=== PATIENT | male | born 1985 | race Caucasian/White ===

== ENCOUNTER 2020-10-27 22:40 | Emergency (ER) | payer BC ==
[2020-10-27 23:04] VITALS: BP 170/99; PULSE 93; RESP 18; TEMP 97.9
[2020-10-27] MEDS ORDERED: BACITRACIN OINT 1 EACH PACKET TOPICAL ONE (23:16)
--- NOTE | 2020-10-28 00:04 | XR ---
EXAMINATION TYPE: XR toes LT DATE OF EXAM: 10/27/2020 COMPARISON: NONE HISTORY: Laceration TECHNIQUE: 4 views FINDINGS: I see no fracture nor dislocation. There is no sign of a foreign body. There is 5 mm bony d ensity posterior to the IP joint of the big toe that could relate to old injury. This is unusual appe arance for accessory ossicle. IMPRESSION: No fracture seen.
[2020-10-28] MEDS ORDERED: CEPHALEXIN 500MG STARTER PACK 4 CAP BTL PO STA (00:28)
--- NOTE | 2020-10-28 00:30 | ED ---
Wound/Laceration HPI - General Chief Complaint: Wound/Laceration Stated Complaint: LT foot lac Time Seen by Provider: 10/27/20 23:07 Source: patient Mode of arrival: ambulatory - History of Present Illness Initial Comments: 34 year-old male patient presents to the emergency department for evaluation of wound to the left great toe. Patient states that injury occurred a couple of hours prior to arrival. States he was running through a field. Stubbed his toe. States afterward he felt some pain, reached down to feel his toe and had blood on his hand. He denies any numbness or tingling. Denies any pain with walking. He states that last tetanus vaccine was about a year ago. He is unsure what cut his foot. He was barefoot at the time of injury. - Related Data Previous Rx's Medication Instructions Recorded Cephalexin [Keflex] 500 mg PO Q6H #28 cap 10/28/20 Allergies Allergy/AdvReac Type Severity Reaction Status Date / Time No Known Allergies Allergy Verified 10/27/20 23:04 Review of Systems ROS Statement: Those systems with pertinent positive or pertinent negative responses have been documented in the HPI. ROS Other: All systems not noted in ROS Statement are negative. Past Medical History Past Medical History: No Reported History History of Any Multi-Drug Resistant Organisms: None Reported Past Surgical History: No Surgical Hx Reported Past Psychological History: No Psychological Hx Reported Smoking Status: Never smoker Past Alcohol Use History: None Reported Past Drug Use History: None Reported General Exam General appearance: alert, in no apparent distress, other (This is a well- developed, well-nourished adult male patient in no acute distress. Vital signs upon presentation are temperature 97.9F, pulse 93, respirations 18, blood pressure 170/99, pulse ox 98% on room air.) Eye exam: Present: normal appearance, PERRL, EOMI. Absent: scleral icterus, conjunctival injection, periorbital swelling ENT exam: Present: normal exam, normal oropharynx, mucous membranes moist Respiratory exam: Present: normal lung sounds bilaterally. Absent: respiratory distress, wheezes, rales, rhonchi, stridor Cardiovascular Exam: Present: regular rate, normal rhythm, normal heart sounds. Absent: systolic murmur, diastolic murmur, rubs, gallop, clicks Extremities exam: Present: full ROM, normal capillary refill, other (There is a flap laceration noted to the plantar surface of the left great toe. No active bleeding. Mild tenderness. Flap is thin.). Absent: normal inspection, tenderness, pedal edema, joint swelling, calf tenderness Neurological exam: Present: alert, oriented X3, CN II-XII intact Psychiatric exam: Present: normal affect, normal mood Skin exam: Present: warm, dry, intact, normal color. Absent: rash Course Vital Signs 10/27/20 23:00 Temperature 97.9 F Pulse Rate 93 Respiratory 18 Rate Blood Pressure 170/99 O2 Sat by Pulse 98 Oximetry Medical Decision Making - Medical Decision Making 34-year-old male patient presented for evaluation of laceration to the left great toe. Physical examination did reveal flap laceration to the toe, flap is thin. Repair is not necessary. X-ray was obtained and showed no evidence for foreign body. He is given bacitracin and dressing. He is given postop shoe. He is instructed to rest as much as possible. He is given antibiotics for prevention of infection. He is instructed to follow-up the primary care physician for recheck in 1-2 days. Return parameters were discussed in detail. He verbalizes understanding and agrees this plan. My attending is Dr. Vogel. - Radiology Data Radiology results: report reviewed, image reviewed 4 views of the left great toe was obtained. Report was reviewed in its entirety. Impression by Dr. Barton shows no fracture seen. No sign of a foreign body. Disposition Clinical Impression: Laceration of left great toe Disposition: HOME SELF-CARE Condition: Good Instructions (If sedation given, give patient instructions): Acute Wound Care (ED), Laceration Without Closure (ED) Additional Instructions: Keep wound clean and dry. Cleanse twice daily with warm water and antibacterial soap. Apply antibiotic ointment and bandage. Follow-up the primary care physician for recheck in 1-2 days. Return for any new, worsening, or concerning symptoms. Prescriptions: Cephalexin [Keflex] 500 mg PO Q6H #28 cap Is patient prescribed a controlled substance at d/c from ED?: No Referrals: Nonstaff,Physician [Primary Care Provider] - 1-2 days Time of Disposition: 00:30
== END 2020-10-28 00:49 | disposition home or self-care (01) ==
LOC: EC 22:40
DX: S91.112A Laceration without foreign body of left great toe without damage to nail, initial encounter (principal); W22.8XXA Striking against or struck by other objects, initial encounter; Y93.02 Activity, running
CPT/HCPCS: 99283